=== PATIENT | male | born 1985 | race American Indian/Alaskan Native ===

== ENCOUNTER 2022-07-26 21:50 | Emergency (ER) | payer BC, OTHER ==
[2022-07-26 22:41] LABS: ANION GAP 10.2 mEq/L (7-13)
[2022-07-26 22:48] LABS: CORONAVIRUS COVID-19 NAA NEGATIVE (NEGATIVE)
== END 2022-07-26 23:13 | disposition home or self-care (01) ==
LOC: DL.ED 21:50
DX: J06.9 Acute upper respiratory infection, unspecified (principal); Z91.09 Other allergy status, other than to drugs and biological substances; Z20.822 Contact with and (suspected) exposure to COVID-19
CPT/HCPCS: 0240U; 36415; 71045; 80053; 83605; 85025; 99283

== ENCOUNTER 2022-11-26 16:59 | Emergency (ER) | payer OTHER ==
[2022-11-26] MEDS: Diphtheria,Pertussis(Acell),Tetanus Vaccine 0.5 ML Syringe IM ONE (17:45)
[2022-11-26] MEDS: Lidocaine 2% with EPINEPHrine 1:200,000 20 ML SDV INJECT ONE (17:45)
== END 2022-11-26 18:03 | disposition home or self-care (01) ==
LOC: DL.ED 16:59
DX: S81.811A Laceration without foreign body, right lower leg, initial encounter (principal); Z91.09 Other allergy status, other than to drugs and biological substances; Z23 Encounter for immunization; W20.8XXA Other cause of strike by thrown, projected or falling object, initial encounter
CPT/HCPCS: 12002; 90471; 90715; 99282; 99282-25; J3490

== ENCOUNTER 2024-05-19 22:43 | Emergency (ER) | payer MEDICAID, OTHER ==
[2024-05-19] MEDS: Fluorescein 1 MG Ophth Strip EYEBOTH ONE (23:14)
[2024-05-19] MEDS: Polymyxin B/Trimethoprim 10 ML Bottle ONE (23:17)
[2024-05-19] MEDS: Proparacaine 0.5% Ophth Soln 15 ML Bottle EYEBOTH ONE (23:17)
== END 2024-05-19 23:28 | disposition home or self-care (01) ==
LOC: DL.ED 22:43
DX: S05.02XA Injury of conjunctiva and corneal abrasion without foreign body, left eye, initial encounter (principal); S05.01XA Injury of conjunctiva and corneal abrasion without foreign body, right eye, initial encounter; Z90.49 Acquired absence of other specified parts of digestive tract; X58.XXXA Exposure to other specified factors, initial encounter
CPT/HCPCS: 99283; A9270